=== PATIENT | male | born 1990 | race Two or more races ===

== ENCOUNTER 2017-01-18 13:15 | Emergency (ER) | payer SELFPAY ==
[~2017-01-18] VITALS: Ht 177.8 cm; Wt 77.1 kg
--- NOTE | 2017-01-18 15:00 | NUR ---
PATIENT STRONGLY REFUSED EKG, BLOOD DRAW. EXPLAINED RISKS AND BENEFITS
--- NOTE | 2017-01-18 15:39 | NUR ---
REFUSED BLOOD DRAW, AWARE
[2017-01-18 17:15] VITALS: BP 121/69
== END 2017-01-18 17:19 | disposition home or self-care (01) ==
LOC: ER 13:19
DX: R00.2 Palpitations (principal); R44.0 Auditory hallucinations; F12.10 Cannabis abuse, uncomplicated
CPT/HCPCS: 93005; 99283; A4606; Z7610